=== PATIENT | female | born 1935 | race Caucasian/White ===

== ENCOUNTER → 2023-12-14 10:08 | Outpatient (REF) | payer MEDICARE, OTHER, SELFPAY | LOC: HWRAD 10:08 | PROVIDERS: ATTENDING PHYSICIAN Nurse Practitioner Adult Health; FAMILY PHYSICIAN Internal Medicine | DX: R10.9 Unspecified abdominal pain (principal) | CPT/HCPCS: 74177; Q9967 ==

== ENCOUNTER 2024-07-09 21:59 | Emergency (ER) | payer MEDICARE, OTHER, SELFPAY ==
[2024-07-09 22:01] VITALS: BP 144/63
[2024-07-10 00:35] VITALS: BP 119/48
[2024-07-10 00:36] VITALS: BMI 27.0
[2024-07-10 00:46] LABS: % Basophils 0.2 % (0-2); % Eosinophils 0.7 % (0-6); % Immature Granulocytes 0.2 % (0-0.5); % Lymphocytes 26.8 % (20.5-51.1); % Monocytes 10.6 % (1.7-9.3); % Neutrophils 61.5 % (42.2-75.2); Absolute Lymphocytes 1.6 10^3/uL (1.2-3.4); Absolute Monocytes 0.6 10^3/uL (0.1-0.6); Absolute Neutrophils 3.7 10^3/uL (1.4-6.5); Hematocrit 30.6 % (37.0-47.0); Hemoglobin 9.8 g/dL (12.0-16.0); Mean Corpuscular Hgb 25.6 pg (27.0-31.0); Mean Corpuscular Volume 79.9 fL (81.0-99.0); Mean Platelet Volume 9.7 fL (7.4-10.4); Nucleated Red Blood Cells % 0 %; Platelet Count 170 10^3/uL (130-400); Red Blood Cell Count 3.83 10^6/uL (4.20-5.40); Red Cell Dist. Width 14.2 % (11.5-14.5)
[2024-07-10 01:00] VITALS: BP 132/47
[2024-07-10 01:05] LABS: ALT (SGPT) 13 U/L (0-35); AST (SGOT) 19 U/L (14-36); Albumin 3.6 g/dl (3.5-5.0); Alkaline Phosphatase 84 U/L (38-126); Blood Urea Nitrogen 33 mg/dl (7-17); Calcium 9.3 mg/dl (8.4-10.2); Carbon Dioxide 24 mmol/L (22-30); Chloride 108 mmol/L (98-107); Estimated Creatinine Clearance 34 ml/min; Glucose 129 mg/dl (70-99); Sodium 143 mmol/L (135-145); Total Bilirubin 0.1 mg/dl (0.2-1.3); Total Protein 5.9 g/dl (6.3-8.2); eGFR 48.63
--- NOTE | 2024-07-10 01:28 | ED.GENMED ---
History of Present Illness
<JESSICA Johnson - Last Filed: 07/10/24 04:33>
General
Chief Complaint: Gait Dysfunction
Source: patient
Exam Limitations: none
Time Seen by Provider: 07/10/24 00:55
Nursing documentation reviewed up to this point in time: agreed with
History of Present Illness
History of Present Illness:
Patient w/ recent hx of frequent falls presents to the ED w/ weakness and trouble walking. Pt reports multiple falls in the past 6 mo including one that ended in admission to [facility] 04/25-04/29. MRI of head, thoracic, and lumbar done and arthritis
found. Most recent fall 3 wks ago, landed on back. Pt reports continued low back pain and R hip pain w/ movement. Reports episodes of feeling like her legs are moving fasting than the rest of her body. States if she does not grab something she will
then fall. Reports 5-6 episodes of this in past few months. Pt reports L leg gave out on 07/07 and she has had trouble walking since. Reports constant L leg weakness and leaning towards L when walking. Denies changes to bowel/bladder habits, chest
pain, trouble breathing, and N/V.
Review of Systems
<JESSICA Johnson - Last Filed: 07/10/24 04:33>
Review of Systems
Constitutional: Denies fever, fatigue or chills
Respiratory: Denies cough or trouble breathing
Cardiac: Denies chest pain or palpitations
ABD/GI: Reports constipated; Denies abdominal pain, nausea, vomiting or diarrhea
: Denies dysuria, incontinence or urgency
Musculoskeletal: Reports joint pain and back pain
Neurological: Reports weakness; Denies dizzy, headache or numbness
Phy Exam
<JESSICA Johnson - Last Filed: 07/10/24 04:33>
General Physical Exam
General Presentation: no apparent distress
General age: appears stated age
General Skin: warm and dry
General Habitus: elderly
General Mental: alert
Eye Exam
Eye Exam: PERRL
Cardiovascular Exam
Cardiovascular Exam: regular rate/rhythm, no edema, no gallop and no murmur
Pulmonary Exam
Pulmonary Exam: lungs clear, no respiratory distress, no rales, no crackles, no rhonchi and no wheezing
Neurological Exam
Neurological Exam: alert, oriented x3 and no sensory deficits
Musculoskeletal Exam
Musculoskeletal Exam: full ROM, edema and other (no pain w/ passive ROM of LE)
Course
<JESSICA Johnson - Last Filed: 07/10/24 04:33>
Orders/Labs/Results
Orders:
Orders
07/10/24 00:40
Complete Blood Count/With Diff Urgent
Comprehensive Metabolic Panel Urgent
07/10/24 01:46
Lumbar Spine Complete, 4 View [CR Lumbar Spine Comp Min 4 Vw*] Urgent
Comment:
Reason For Exam: mechanical fall 3 weeks ago-increased LBP
07/10/24 01:47
Acetaminophen [Tylenol] 1,000 mg PO NOW STA
Tramadol HCl [Ultram] 50 mg PO NOW STA
Abnormal Lab Results
07/10/24
00:40
RBC 3.83 L 10^6/uL
(4.20-5.40)
Hgb 9.8 L g/dL
(12.0-16.0)
Hct 30.6 L %
(37.0-47.0)
MCV 79.9 L fL
(81.0-99.0)
MCH 25.6 L pg
(27.0-31.0)
MCHC 32.0 L g/dL
(33.0-37.0)
Monocytes % 10.6 H %
(1.7-9.3)
Chloride 108 H mmol/L
(98-107)
BUN 33 H mg/dl
(7-17)
Creatinine 1.1 H mg/dL
(0.6-1.0)
Glucose 129 H mg/dl
(70-99)
Total Bilirubin 0.1 L mg/dl
(0.2-1.3)
Total Protein 5.9 L g/dl
(6.3-8.2)
07/10/24 00:40
07/10/24 00:40
Vital Signs
Initial and Last Documented VS:
Initial Vital Signs
Temp Pulse Resp BP Pulse Ox
98 F 64 16 144/63 97
07/09/24 22:01 07/09/24 22:01 07/09/24 22:01 07/09/24 22:01 07/09/24 22:01
Last Documented Vital Signs
Temp Pulse Resp BP Pulse Ox
98 F 68 16 132/47 97
07/09/24 22:01 07/10/24 01:00 07/10/24 01:00 07/10/24 01:00 07/10/24 01:00
<Pinky Barboza, DO - Last Filed: 07/10/24 04:16>
Orders/Labs/Results
Orders:
Orders
07/10/24 00:40
Complete Blood Count/With Diff Urgent
Comprehensive Metabolic Panel Urgent
07/10/24 01:46
Lumbar Spine Complete, 4 View [CR Lumbar Spine Comp Min 4 Vw*] Urgent
Comment:
Reason For Exam: mechanical fall 3 weeks ago-increased LBP
07/10/24 01:47
Acetaminophen [Tylenol] 1,000 mg PO NOW STA
Tramadol HCl [Ultram] 50 mg PO NOW STA
Abnormal Lab Results
07/10/24
00:40
RBC 3.83 L 10^6/uL
(4.20-5.40)
Hgb 9.8 L g/dL
(12.0-16.0)
Hct 30.6 L %
(37.0-47.0)
MCV 79.9 L fL
(81.0-99.0)
MCH 25.6 L pg
(27.0-31.0)
MCHC 32.0 L g/dL
(33.0-37.0)
Monocytes % 10.6 H %
(1.7-9.3)
Chloride 108 H mmol/L
(98-107)
BUN 33 H mg/dl
(7-17)
Creatinine 1.1 H mg/dL
(0.6-1.0)
Glucose 129 H mg/dl
(70-99)
Total Bilirubin 0.1 L mg/dl
(0.2-1.3)
Total Protein 5.9 L g/dl
(6.3-8.2)
07/10/24 00:40
07/10/24 00:40
Vital Signs
Initial and Last Documented VS:
Initial Vital Signs
Temp Pulse Resp BP Pulse Ox
98 F 64 16 144/63 97
07/09/24 22:01 07/09/24 22:01 07/09/24 22:01 07/09/24 22:01 07/09/24 22:01
Last Documented Vital Signs
Temp Pulse Resp BP Pulse Ox
98 F 68 16 132/47 97
07/09/24 22:01 07/10/24 01:00 07/10/24 01:00 07/10/24 01:00 07/10/24 01:00
Rafaellt;JESSICA Johnson - Last Filed: 07/10/24 04:33>
MDM/Problems Addressed
Differential Diagnosis Includes:
herniated disc, lumbar strain, spinal stenosis
<JESSICA Johnson - Last Filed: 07/10/24 04:33>
*Critical Care Note
Total Time (30-74mins, 75-104mins- exclusive of procedures): Not Applicable
<Pinky Barboza DO - Last Filed: 07/10/24 04:16>
*Radiology
Radiology exam reviewed: preliminary read by ED provider (Lumbar scoliosis, moderate DJD, no evidence of fracture.)
*Pulse Oximetry
Patient hypoxic: no
ED Attending Note
<JESSICA Johnson - Last Filed: 07/10/24 04:33>
-
Portions of this chart may have been created with voice recognition software.� Occasional wrong word or��sound alike� substitutions may have occurred due to the inherent limitations of voice recognition software.
<Pinky Barboza DO - Last Filed: 07/10/24 04:16>
ED Attending Note
Patient seen and examined by attending physician: Yes
I performed the substantive portion of visit, reviewed & personally made and approve the management plan that is documented in note by myself or EITAN.: Yes
ED Attending Note:
This is an 88-year-old woman with history of chronic low back pain, spinal stenosis. Chronically maintained on tramadol which she takes to each a.m. She did suffer a fall April of this year and was hospitalized at [facility] April 25 to April 29
where she underwent multiple radiologic imaging including CT of the head cervical spine chest abdomen and pelvis, MRI of the brain, MRI of the thoracic as well as lumbar spine. No evidence of acute fracture. There was note of an incidental small
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
Since that fall and hospitalization in April patient has been utilizing her rollator for ambulation. She resides in an independent living apartment at [facility].
Although chronic low back pain she continues to participate in water yoga twice weekly and she also went away this weekend on a bus trip with other seniors from [facility].
Upon returning on Sunday she admits to being somewhat fatigued and Sunday evening she felt that her left knee gave out on her and she suffered a 'near fall'
She also notes suffering a fall 3 weeks ago while walking with her rollator, the wheels fell off of the curb and she fell onto her buttocks, was able to get herself up and continue to ambulate. She did not seek care after that fall.
She does note some increased low back pain over the past 3 weeks but denies radiation of the pain, no weakness nor numbness, no saddle anesthesia, no difficulty moving her bowels or bladder.
Since suffering a 'near fall' 2 nights ago she is able to ambulate with her rollator but has marked difficulty going up steps such as climbing bus steps reporting that she needed help to climb up the steps into the bus.
She did take 2 tramadol this morning. She generally takes Tylenol before bed but has not taken any tonight.
She denies knee pain or hip pain. No weakness or numbness.
GENERAL: 88-year-old woman appears her stated age, awake and alert, pleasant, appears in no acute distress. Easily conversant.
EYE: pupils equal and reactive. anicteric. The head is normocephalic, atraumatic.
NECK: Supple, nontender, no meningismus, no significant adenopathy. Full range of motion without difficulty nor pain.
ENT: posterior pharynx is clear, oral mucosa is moist. TM clear b/l, nares patent.
CARDIAC: Regular rate and rhythm. no murmur.
LUNGS: Clear breath sounds bilaterally, no acute respiratory distress, no wheezes/rales/rhonchi
ABDOMEN: Soft, nondistended, without focal tenderness, no r/g, no cvat. normoactive BS.
BACK: Patient able to sit up with moderate assistance from myself. Preferentially leans to the left. There is no midline bony tenderness. Mild tenderness bilateral lower lumbar sacral region. Straight leg raising is negative bilaterally. There
is no palpable bony pelvic nor hip tenderness.
NEUROLOGICAL: Alert and oriented x3, no focal neuro deficits. Motor strength is 5/5 bilaterally. Gross sensation is intact.
SKIN: Warm and dry, normal color, skin intact. No rash.
MUSCULOSKELETAL: No clubbing or cyanosis. Trace nonpitting edema bilateral lower extremities. No palpable tenderness to the hips nor knees. Full range of motion of bilateral lower extremities without difficulty nor pain. Peripheral pulses are
full and equal b/l.
PSYCH: Normal and appropriate interaction.
Patient presents with acute exacerbation of chronic low back pain after suffering a mechanical fall 3 weeks ago and then a near fall 2 nights ago.
Chronically requires rollator to ambulate and has had difficulty ascending steps over the past 2 days.
No evidence of neurologic deficit, no weakness nor paresthesia on exam. No red flags in history nor exam.
With history of fall 3 weeks ago with increase in her chronic low back pain, there is some concern for potential occult fracture, occult compression fracture thus will check lumbar spine x-ray.
Will give a dose of tramadol as well as Tylenol.
Laboratory studies show mild anemia, similar anemia noted on outpatient labs from April.
Creatinine 1.1, improved from 1.3 1-year ago. Appears to be her baseline.
07/10/2024 0231 AM
X-ray shows scoliosis, moderate DJD but no evidence of fracture.
Patient has been medicated for pain.
Will attempt to get up and ambulate with walker.
07/10/2024 0414 AM
patient is up ambulating with walker with steady unaided gait.
Will discharge back to her independent living apartment with recommendations for prompt follow-up with PCP for recheck. Would recommend physical therapy evaluation and treatment for gait training, balance and strength training.
Discharge Plan
Departure
Patient Disposition: Assisted Living
Date of Disposition: 07/10/24
Time of Disposition: 04:13
Patient with high blood pressure during this ER visit?: No
Condition: Good
Discharge Problem:
Acute exacerbation of chronic low back pain
Instructions: Low back pain in adults
Prescriptions:
No Action
cetirizine 10 mg Tablet
10 mg PO HS
metoprolol succinate 50 mg Tablet Extended Release 24 Hr
50 mg PO HS
lisinopril 20 mg Tablet
20 mg PO BID
sertraline 100 mg Tablet
100 mg PO DAILY
cyanocobalamin (vitamin B-12) 1,000 mcg Tablet
1,000 mcg PO DAILY
acetaminophen 500 mg Tablet
500 mg PO Q6H PRN (Reason: mild pain/fever)
omeprazole 20 mg Capsule,Delayed Release(Dr/Ec)
20 mg PO DAILY
digoxin 125 mcg (0.125 mg) Tablet
125 mcg PO DAILY
furosemide 20 mg Tablet
20 mg PO DAILY PRN (Reason: fluid retention)
mirabegron 25 mg Tablet Extended Release 24 Hr
25 mg PO Q48H
Referrals:
Gustavo Whiting MD [Family Provider] - Call in 1-3 days for appt
Interventions
Interventions:
*Risk Screen - Suicide Last Done: 07/09/24 22:01
*General Assessment Last Done: 07/10/24 00:36
*Neglect/Abuse Screening Last Done: 07/10/24 00:01
*ED COVID-19 Vaccine History Last Done: 07/10/24 00:36
ED- Neurological Assessment Last Done: 07/10/24 00:36
ED-Musculoskeletal Assessment Last Done: 07/10/24 00:36
ED Swallowing Screen Last Done: 07/10/24 01:55
Discharge Date and Time
Print Language: [place]
[2024-07-10] MEDS: ULTRAM 50 MG PO (01:55)
[2024-07-10] MEDS: TYLENOL 1000 MG PO (01:55)
[2024-07-10 04:27] VITALS: BP 120/56
== END 2024-07-10 05:23 ==
LOC: EMR 21:59
PROVIDERS: EMERGENCY PHYSICIAN Emergency Medicine; FAMILY PHYSICIAN Internal Medicine
DX: G89.29 Other chronic pain (principal); M54.50 Low back pain, unspecified; R29.6 Repeated falls
CPT/HCPCS: 99284; 72110; 80053; 85025